=== PATIENT | female | born 1940 | race Caucasian/White ===

== ENCOUNTER 2022-02-15 11:55 | Outpatient (CLI) | payer MEDICARE | END 2022-02-15 11:56 | disposition home or self-care (01) | LOC: CSHLAB 11:55 | PROVIDERS: ATTEND Internal Medicine Gastroenterology | DX: Z20.822 Contact with and (suspected) exposure to COVID-19 (principal); K63.5 Polyp of colon | CPT/HCPCS: 87811 ==

== ENCOUNTER 2022-02-18 08:22 | Day surgery (SDC) | payer MEDICARE ==
[2022-02-16 15:39] VITALS: BMI 31.8
[2022-02-18] MEDS ORDERED: Lidocaine 1% MPF 2 ML VIAL ONE (09:19)
[2022-02-18] MEDS ORDERED: Lidocaine 1% PF 5 ML VIAL ONE (10:37)
[2022-02-18] MEDS ORDERED: PROPOFOL 20 ML ONE (10:37)
== END 2022-02-18 11:41 | disposition home or self-care (01) ==
LOC: CSHSDC 08:22
PROVIDERS: ATTEND Internal Medicine Gastroenterology
PROC: 0DBP8ZZ Excision of Rectum, Via Natural or Artificial Opening Endoscopic (ICD-10-PCS; principal; 2022-02-18)
DX: K62.1 Rectal polyp (principal); K57.30 Diverticulosis of large intestine without perforation or abscess without bleeding; K64.9 Unspecified hemorrhoids; I10 Essential (primary) hypertension; E11.9 Type 2 diabetes mellitus without complications; I25.10 Atherosclerotic heart disease of native coronary artery without angina pectoris; F32.A Depression, unspecified; Z20.822 Contact with and (suspected) exposure to COVID-19; E78.5 Hyperlipidemia, unspecified; Z79.899 Other long term (current) drug therapy; Z79.84 Long term (current) use of oral hypoglycemic drugs; Z88.0 Allergy status to penicillin; Z90.49 Acquired absence of other specified parts of digestive tract
CPT/HCPCS: 88305; J2704